=== PATIENT | male | born 1970 | race Hispanic/Latino ===

== ENCOUNTER 2021-11-23 12:30 | Emergency (ER) | payer SELFPAY ==
[2021-11-23] MEDS ORDERED: Naprosyn 500 MG PO ONE (12:59)
[2021-11-23] MEDS ORDERED: TORAdol 30 mg Injection IM ONE (13:24)
[2021-11-23] MEDS ORDERED: TORAdol 30 mg Injection ONE (13:27)
--- NOTE | 2021-11-23 14:04 | ERPHSYRPT ---
- History of Present Illness Time Seen by Provider: 11/23/21 13:24 Source: patient Exam Limitations: no limitations Patient Subjective Stated Complaint: Pt c/o of gout in his left knee, he left his meds on the [employer] bus which are cholchicine and naprosyn Triage Nursing Assessment: Pt was brought to the ER by his bosses son, hypertensive, rates pain as 7-8/10 in his left knee, it wakes him in the night, has had this problem for almost 25 years, pulses normal, left knee swollen, usually has it drained, doesn't appear to be in any distress Physician History: 51 years old [place] male presented in the ER with chief complaint of left knee pain and swelling worsening since yesterday. Patient does have history of gout and similar swelling in the past responding to medication and sometimes needing aspiration. Patient difficulty lost his Naprosyn/colchicine while traveling. Denies any fall or trauma. Pain is moderate to severe sharp neck and difficulty ambulation. No significant relieving factor. No fever or chills reported. Denies any redness of the knee. Method of Injury: other Occurred: yesterday Quality: constant, sharpness Severity of Pain-Max: severe Severity of Pain-Current: moderate Lower Extremities Pain: knee: left Modifying Factors: Improves With: immobilization. Worsens With: movement Associated Symptoms: unable to bear weight Allergies/Adverse Reactions: aspirin Allergy (Verified 11/23/21 12:55) Travel Risk - International Travel Have you traveled outside of the country in past 3 weeks: No - Coronavirus Screening Are you exhibiting any of the following symptoms?: No Close contact with a COVID-19 positive Pt in past 14-21 Days: No - Vaccine Status Have you recieved a Covid-19 vaccination: No - Review of Systems Constitutional: No Symptoms Respiratory: No Symptoms Cardiac: No Symptoms Abdominal/Gastrointestinal: No Symptoms Genitourinary Symptoms: No Symptoms Musculoskeletal: Arthralgias, Joint Pain, Joint Swelling, No Joint Redness Skin: No Symptoms Psychological: No Symptoms Hematologic/Lymphatic: No Symptoms Immunological/Allergic: No Symptoms - Past Medical History Pertinent Past Medical History: Yes Other Medical History: gout - Past Surgical History Past Surgical History: No - Social History Smoking Status: Never smoker Exposure to second hand smoke: No Drug Use: none Patient Lives Alone: No - Nursing Vital Signs Nursing Vital Signs: Initial Vital Signs Temperature 98.3 F 11/23/21 12:44 Pulse Rate 85 11/23/21 12:44 Blood Pressure 169/89 11/23/21 12:44 O2 Sat by Pulse Oximetry 97 11/23/21 12:44 Pain Scale Pain Intensity 8 - Physical Exam General Appearance: no apparent distress, alert Neck Exam: normal inspection, full range of motion Cardiovascular/Respiratory Exam: normal breath sounds, regular rate/rhythm Back Exam: normal inspection, normal range of motion Legs Exam: bilateral leg: non-tender, normal inspection, normal range of motion Knees Exam: right knee: non-tender, normal inspection, normal range of motion, left knee: joint effusion, pain, soft tissue tenderness, swelling, other (No signs of cellulitis) Ankle Exam: bilateral ankle: non-tender, normal inspection, normal range of motion Neuro/Tendon Exam: normal sensation, normal motor functions Mental Status Exam: alert, oriented x 3, cooperative Skin Exam: normal color SpO2 Interpretation: normal SpO2: 97 O2 Delivery: Room Air Ordered Tests: Active Orders 24 hr Category Date Time Status Uric Acid Stat Lab 11/23/21 13:50 Received Medication Summary Discontinued Medications Generic Name Dose Route Start Last Admin Trade Name Peteq PRN Reason Stop Dose Admin Ketorolac Tromethamine 30 mg 11/23/21 13:24 11/23/21 13:31 Ketorolac Tromethamine 30 Mg/Ml Inj IM 11/23/21 13:25 30 mg STAT ONE Administration Ketorolac Tromethamine Confirm 11/23/21 13:27 Ketorolac Tromethamine 30 Mg/Ml Inj Administered 11/23/21 13:28 Dose 30 mg .ROUTE .STK-MED ONE Naproxen 500 mg 11/23/21 12:59 11/23/21 13:10 Naproxen 500 Mg Tablet PO 11/23/21 13:00 500 mg STAT ONE Administration - Progress Progress: improved, pain not gone completely Progress Note: 11/23/21 14:02 Is given Toradol shots along with oral Naprosyn and feeling better on reevaluation. I have offered him imaging and aspiration which he refused and says "I have the same problem multiple times for the last 25 years and only 1 time needing aspiration I do not think it is that bad now." I would give him indomethacin to go home and outpatient follow-up recommended recommended avoiding exertional activities. Discussed signs symptoms of worsening needing return to ER which he seems understanding Counseled pt/family regarding: diagnosis, need for follow-up - Departure Departure Disposition: Home Clinical Impression: Gout attack Condition: Stable Critical Care Time: No Referrals: DOCTOR,NO FAMILY [Primary Care Provider] - Follow up/PCP as directed ORTHO - [facility] [employer] [NON-STAFF PHY W/O PRIVILEGES] - Follow up/PCP as directed (In 2 days for reevaluation) Instructions: Gout (DC) Additional Instructions: Take pain medications as needed. Follow-up with Ortho for reevaluation. Return to ER for worsening pain swelling, difficulty ambulation/if develop redness/fever chills etc. Prescriptions: Indomethacin 25 mg [Indocin 25 MG] 50 mg PO Q8H PRN PRN 7 Days #30 cap PRN Reason: Pain
[2021-11-23 14:39] VITALS: BP 134/85; PULSE 76; O2SAT 95
== END 2021-11-23 14:39 | disposition home or self-care (01) ==
LOC: ED 12:30
DX: M10.9 Gout, unspecified (principal); M25.562 Pain in left knee; M25.462 Effusion, left knee
CPT/HCPCS: 36415; 84550; 96372; 99284; J1885; A9270-GY